=== PATIENT | male | born 1945 | race Caucasian/White ===

== ENCOUNTER → 2019-02-26 08:51 | Outpatient (CLI) | payer MEDICARE, OTHER, SELFPAY ==
[2019-02-26 09:30] LABS: Cholesterol 267 mg/dL (140-199); HDL Cholesterol 54 mg/dL (40-60); LDL Cholesterol Calculated 196 mg/dL (<100); Triglycerides 84 mg/dL (35-150)
== END ==
PROVIDERS: Visit Provider Internal Medicine
DX: E78.00 Pure hypercholesterolemia, unspecified (principal)
CPT/HCPCS: 36415; 80061

== ENCOUNTER → 2019-05-24 08:31 | Outpatient (CLI) | payer MEDICARE, OTHER, SELFPAY ==
[2019-05-24 09:57] LABS: Cholesterol 189 mg/dL (140-199); HDL Cholesterol 58 mg/dL (40-60); LDL Cholesterol Calculated 105 mg/dL (<100); Triglycerides 131 mg/dL (35-150)
== END ==
PROVIDERS: Visit Provider Internal Medicine
DX: E78.00 Pure hypercholesterolemia, unspecified (principal)
CPT/HCPCS: 36415; 80061

== ENCOUNTER → 2020-04-07 09:27 | Outpatient (CLI) | payer MEDICARE, OTHER, SELFPAY ==
[2020-04-07 11:59] LABS: Alanine Aminotransferase 34 IU/L (<50); Albumin 4.3 g/dL (3.5-5.0); Albumin Globulin Ratio 1.6 (1.0-2.8); Alkaline Phosphatase 54 U/L (38-126); Aspartate Aminotransferase 33 IU/L (17-59); BUN Creatinine Ratio 16.8 (6-22); Bilirubin Total 0.8 mg/dL (0.2-1.3); Blood Urea Nitrogen 19 mg/dL (9-20); Calcium 9.6 mg/dL (8.4-10.2); Carbon Dioxide 25 mmol/L (22-32); Chloride 106 mmol/L (98-107); Cholesterol 168 mg/dL (140-199); Estimated Glomerular Filt Rate > 60.0 mL/min (>60); Globulin 2.7 g/dL (1.7-4.1); Glucose 112 mg/dL (80-110); HDL Cholesterol 66 mg/dL (40-60); HEMOLYSIS < 15 (0-50); LDL Cholesterol Calculated 82 mg/dL (<100); Potassium 4.5 mmol/L (3.4-5.1); Sodium 139 mmol/L (137-145); Triglycerides 102 mg/dL (35-150)
== END ==
PROVIDERS: Referring Provider Internal Medicine; Visit Provider Internal Medicine
DX: E78.00 Pure hypercholesterolemia, unspecified (principal); R97.20 Elevated prostate specific antigen [PSA]
CPT/HCPCS: 36415; 80053; 80061

== ENCOUNTER → 2020-09-15 14:45 | Outpatient (CLI) | payer MEDICARE, OTHER, SELFPAY ==
[2020-09-15] MEDS: COVID-19 VACC #1, MRNA(MOD) 100 MCG/0.5 ML VIAL IM (14:47)
== END ==
PROVIDERS: PCP Internal Medicine; Visit Provider Internal Medicine
DX: Z23 Encounter for immunization (principal)
CPT/HCPCS: 0011A; 91301

== ENCOUNTER → 2020-10-13 07:36 | Outpatient (CLI) | payer MEDICARE, OTHER, SELFPAY ==
[2020-10-13] MEDS: COVID-19 VACC #2, MRNA(MOD) 100 MCG/0.5 ML VIAL IM (08:08)
== END ==
PROVIDERS: PCP Internal Medicine; Visit Provider Internal Medicine
DX: Z23 Encounter for immunization (principal)
CPT/HCPCS: 0012A; 91301

== ENCOUNTER → 2024-04-07 09:06 | Outpatient (CLI) | payer MEDICARE, OTHER, SELFPAY ==
[2024-04-07 10:10] LABS: Add Manual Diff / Slide Review NO; Basophils Absolute Auto 0 /uL (0-100); Basophils Percent Auto 0.4 % (0-2); Eosinophils Absolute Auto 400 /uL (0-450); Eosinophils Percent Auto 4.5 % (2-4); Hematocrit 42.2 % (41-53); Hemoglobin 14.4 g/dL (13.5-17.5); Lymphocytes Absolute Auto 1800 /uL (1100-4500); Lymphocytes Percent Auto 20.3 % (25-40); Mean Corpuscular HGB Conc 34.1 % (30-36); Mean Corpuscular Hemoglobin 30.9 PG (26-34); Mean Corpuscular Volume 90.7 fL (80-100); Monocytes Absolute Auto 700 /uL (0-900); Monocytes Percent Auto 8.4 % (3-14); Neutrophils Absolute Auto 5900 /uL (1500-7000); Neutrophils Percent Auto 66.4 % (50-75); Platelet Count 288 X10^3/uL (150-400); Red Blood Cell Count 4.65 X10^6/uL (4.5-5.9); Red Cell Distribution Width 13.9 % (11.6-14.8); White Blood Cell Count 8.9 X10^3/uL (4.5-11.0)
[2024-04-07 10:31] LABS: Alanine Aminotransferase 28 IU/L (<50); Albumin 4.3 g/dL (3.5-5.0); Albumin Globulin Ratio 1.7 (1.0-2.8); Alkaline Phosphatase 58 U/L (38-126); Aspartate Aminotransferase 34 IU/L (17-59); BUN Creatinine Ratio 23.7 (6-22); Bilirubin Total 0.6 mg/dL (0.2-1.3); Blood Urea Nitrogen 28 mg/dL (9-20); Calcium 9.6 mg/dL (8.4-10.2); Carbon Dioxide 25 mmol/L (22-32); Chloride 109 mmol/L (98-107); Cholesterol 192 mg/dL (140-199); Estimated Glomerular Filt Rate > 60 mL/min (>60); Globulin 2.5 g/dL (1.7-4.1); Glucose 114 mg/dL (80-110); HDL Cholesterol 72 mg/dL (40-60); HEMOLYSIS < 15 (0-50); LDL Cholesterol Calculated 107 mg/dL (<100); Potassium 4.7 mmol/L (3.4-5.1); Sodium 141 mmol/L (137-145); Total Protein 6.8 g/dL (6.3-8.2); Triglycerides 65 mg/dL (35-150)
== END ==
PROVIDERS: PCP Family Medicine; Referring Provider Family Medicine; Visit Provider Family Medicine
DX: K57.90 Diverticulosis of intestine, part unspecified, without perforation or abscess without bleeding (principal); E78.5 Hyperlipidemia, unspecified; Z82.5 Family history of asthma and other chronic lower respiratory diseases
CPT/HCPCS: 36415; 80053; 80061; 85025

== ENCOUNTER → 2024-04-09 08:13 | Outpatient (CLI) | payer MEDICARE, OTHER, SELFPAY ==
[2024-04-12 15:09] LABS: Fecal Immunochemical Test Negative (Negative)
== END ==
LOC: LAB 08:14
PROVIDERS: PCP Family Medicine; Referring Provider Family Medicine; Visit Provider Family Medicine
DX: Z12.11 Encounter for screening for malignant neoplasm of colon (principal); K57.90 Diverticulosis of intestine, part unspecified, without perforation or abscess without bleeding
CPT/HCPCS: 82274

== ENCOUNTER → 2025-05-10 09:12 | Outpatient (CLI) | payer MEDICARE, OTHER, SELFPAY ==
--- NOTE | 2025-05-10 09:13 | DI.RAD.S_ITS ---
PROCEDURE: XR CHEST 2V INDICATIONS: screening TECHNIQUE: 2 views of the chest were acquired. COMPARISON: [facility], , XR CHEST 1V, 03/23/2025, 11:24. FINDINGS: Heart, mediastinum and pulmonary vascular: Heart is normal in size and configuration. Mediastinum is unremarkable. Pulmonary vascular is normal. Lungs: Right lower lobe pneumonia has nearly resolved since the comparison x- ray approximately 6 weeks ago. There is only minimal residual airspace disease in this region Pleural spaces: Normal-no effusions or pneumothorax. IMPRESSION: Essentially complete resolution right lower lobe pneumonia Dictated by: Alok Zhu M.D. on 05/11/2025 at 10:03 Approved by: Alok Zhu M.D. on 05/11/2025 at 10:04
== END ==
PROVIDERS: PCP Family Medicine; Referring Provider Family Medicine; Visit Provider Family Medicine
DX: J18.9 Pneumonia, unspecified organism (principal)
CPT/HCPCS: 71046

== ENCOUNTER → 2025-05-18 15:08 | Outpatient (CLI) | payer MEDICARE, OTHER, SELFPAY | PROVIDERS: PCP Family Medicine; Visit Provider Urology | DX: N40.1 Benign prostatic hyperplasia with lower urinary tract symptoms (principal) | CPT/HCPCS: 87077; 87086 ==

== ENCOUNTER 2025-07-01 09:47 | Inpatient (IN) | payer MEDICARE, OTHER, SELFPAY ==
[2025-07-01] VITALS (12 sets, daily range): BP systolic 117–159; BP diastolic 72–94; PULSE 69–121; RESP 11–23; TEMP 36.5–36.6; O2SAT 94–97; BMI 25.2; BMI 24.9
--- NOTE | 2025-07-01 09:57 | DI.CT.S_ITS ---
PROCEDURE: CT ANGIO HEAD AND NECK INDICATIONS: right arm ataxia TECHNIQUE: After the administration of intravenous contrast, 1 mm thick sections acquired from the aortic arch through the [place]. 3-dimensional xjuwonu-yjthfhsxh-jfinaqenzz (MIP) and/or volume rendering reformats were acquired of the central intracranial vasculature and neck separately. For radiation dose reduction, the following was used: automated exposure control, adjustment of mA and/or kV according to patient size. COMPARISON: None. FINDINGS: Image quality: Diagnostic. Cerebral CT Angiogram: Internal carotid arteries: No acute findings. Intracranial ICA are patent with no significant stenosis. No occlusion. 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 Reference coronal image 117 of series 3 and axial image 131 of series 2. Anterior cerebral arteries: Unremarkable. No significant stenosis. No occlusion. No aneurysm. Middle cerebral arteries: Unremarkable. No significant stenosis. No occlusion. No aneurysm. Posterior cerebral arteries: Unremarkable. No significant stenosis. No occlusion. No aneurysm. Basilar artery: Unremarkable. No significant stenosis. No occlusion. No aneurysm. Vertebral arteries: Unremarkable as visualized. Dural venous sinuses: Unremarkable given phase of enhancement. Other: Arterial phase appearance of the brain parenchyma is unremarkable. Neck CT Angiogram: Internal carotid arteries: Unremarkable. No significant stenosis. No dissection or occlusion. Common carotid arteries: Unremarkable. No significant stenosis. No dissection or occlusion. External carotid arteries: Unremarkable. No occlusion. Vertebral arteries: Unremarkable. No significant stenosis. No dissection or occlusion. Aortic Arch and Mediastinum: Partially visualized aortic arch unremarkable without evidence of aneurysm. Origins of the great vessels unremarkable. Other: Arterial phase soft tissues of the neck and chest are unremarkable. Cervical spondylosis with a degree of canal stenosis C3-C4 and C4-C5. Bilateral bony foraminal narrowing at these 2 levels. IMPRESSION: 1. Question incidental tiny 1 mm left cavernous/supraclinoid carotid aneurysm. At this age, this is a incidental finding. 2. Otherwise no significant intracranial arterial abnormality is seen. 3. No significant abnormality is seen within the arteries of the neck. 4. Cervical spondylosis with canal stenosis and multilevel foraminal narrowing. Any quantitative measurements of stenosis were performed using NASCET criteria. Dictated by: Bipin Medina M.D. on 07/01/2025 at 10:17 Approved by: Bipin Medina M.D. on 07/01/2025 at 10:22
--- NOTE | 2025-07-01 09:57 | DI.CT.S_ITS ---
PROCEDURE: CT STROKE INDICATIONS: right arm ataxia TECHNIQUE: Noncontrast 4.5 mm thick angled axial sections acquired from the foramen magnum to the vertex, with coronal reformats. For radiation dose reduction, the following was used: automated exposure control, adjustment of mA and/or kV according to patient size. COMPARISON: None. FINDINGS: Image quality: Diagnostic. CSF spaces: Basal cisterns are patent. No extra-axial fluid collections. The ventricles are symmetric in size and shape. Brain: No intracranial bleeds or mass effect. There is cerebral volume loss, with resultant ventricular and sulcal prominence. There are periventricular and deep white matter chronic small vessel ischemic changes. There is intracranial internal carotid artery atherosclerosis. Skull and face: Calvarium and visualized facial bones appear intact, without suspicious lesions. Sinuses: Visualized sinuses and mastoids are clear. IMPRESSION: No acute intracranial pathology. Comment: Findings were discussed with Dr. Gallardo on 07.01.25 at 10:11 hours This study fulfills neurological imaging criteria for inclusion or exclusion of acute stroke therapies based on available published neurological guidelines. Dictated by: Bipin Medina M.D. on 07/01/2025 at 10:10 Approved by: Bipin Medina M.D. on 07/01/2025 at 10:12
--- NOTE | 2025-07-01 09:57 | EKG_ITS ---
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
--- NOTE | 2025-07-01 09:58 | ED_ITS ---
HPI - Neuro Symptoms/Deficit General Chief Complaint: Neuro Symptoms/Deficit Stated Complaint: Believes he had stroke. Time Seen by Provider: 07/01/25 09:57 History of Present Illness HPI Narrative: 80-year-old male with history of high cholesterol and enlarged prostate here with cc of ?my right arm does not go where I want it to go. ? He woke up with these symptoms around 5 or 6:00 a.m.. Went to bed around 9:00 p.m. last night. Had a normal day yesterday and did not notice this issue. No recent illness. Denies any chest pain, disturbances in speech or vision, facial droop, weakness in the arms or legs that is new. No fevers, urinary issues aside from chronic issues due to his enlarged prostate. No prior history of stroke. He is not anticoagulated. Related Data Home Medications ?Medication ?Instructions ?Recorded ?Confirmed latanoprost 0.005 % eye drops 1 drp EYE-BOTH DAILY 07/01/25 Previous Rx's ?Medication ?Instructions ?Recorded tamsulosin 0.4 mg capsule 0.8 mg (2 x 0.4 mg) PO DAILY #180 04/08/25 caps aspirin 81 mg tablet,delayed 81 mg PO DAILY #100 tabs 07/02/25 release atorvastatin 20 mg tablet 80 mg (4 x 20 mg) PO BEDTIME #90 07/02/25 tabs clopidogrel 75 mg tablet 75 mg PO DAILY #21 tabs 06/05 04/28 Allergies Allergy/AdvReac Type Severity Reaction Status Date / Time grass pollen Allergy Mild ITCHING Verified 07/01/25 10:00 Review of Systems Review of Systems Narrative: Pertinent ROS obtained and negative except as stated in HPI Patient History Medical History Tear of right biceps muscle BPH (benign prostatic hyperplasia) Glaucoma Family history of heart disease Preventative health care History of colon polyps Family history of COPD (chronic obstructive pulmonary disease) 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 Diverticulosis Elevated PSA Hyperlipidemia Allergies (~2004) Mumps (~1950) Measles (~1949) Chicken pox (~1949) Vertigo (~1989) Colon polyps (~1998) Surgical History History of arthroscopy of both knees Anesthesia Diverticula, colon (~2009) History of shoulder surgery (~1974) History of arthroscopic knee surgery History of appendectomy (~1966) Family History Father Respiratory failure Mother Stroke Social History household members: significant other Smoking Status: Never smoker Exam Narrative Exam Narrative: Constitutional: Well appearing, no acute distress Head: NCAT Cardiovascular: RRR, no murmur or rub Pulmonary: CTA bilaterally, no respiratory distress Abdominal: soft, non-tender Extremities: No LE edema Skin: warm and dry, no diaphoresis Neurological: Alert and oriented x3. Normal attention and follows commands. Memory grossly intact. Receptive & Expressive language intact. Visual/Spacial function - no neglect. Cranial nerves: Normal EOM. No visual loss. No facial palsy. Normal speech. No dysarthria. Motor Exam: Equal 5/5 strength UE and LEs. Sensory Exam: Normal sensation. Coordination and Cerebellar Exam: Ataxia of the right upper extremity. No truncal ataxia. No nystagmus noted. Initial Vital Signs Initial Vital Signs: Vital Signs Pulse Rate 104 H 07/01/25 09:52 Blood Pressure 159/94 H 07/01/25 09:52 Pulse Oximetry 97 07/01/25 09:52 Course Orders Ordered: Discontinued Medications Acetaminophen (Acetaminophen 325 Mg Tablet) 650 mg PO Q6H PRN PRN Reason: Fever/Mild Pain (1-3) Aspirin (Aspirin Ec 325 Mg Tablet) 325 mg PO NOW ONE Stop: 07/01/25 13:59 Last Admin: 07/01/25 14:58 Dose: 325 mg Documented By: SATHISH Aspirin (Aspirin Ec 81 Mg Tablet) 81 mg PO DAILY [facility] Last Admin: 07/02/25 08:13 Dose: 81 mg Documented By: MS Atorvastatin Calcium (Atorvastatin 20 Mg Tablet) 80 mg PO BEDTIME [facility] Last Admin: 07/01/25 20:46 Dose: 80 mg Documented By: ZHANE Clopidogrel Bisulfate (Clopidogrel 75 Mg Tablet) 300 mg PO NOW ONE Stop: 07/01/25 14:07 Last Admin: 07/01/25 14:58 Dose: 300 mg Documented By: SATHISH Clopidogrel Bisulfate (Clopidogrel 75 Mg Tablet) 75 mg PO DAILY [facility] Last Admin: 07/02/25 08:13 Dose: 75 mg Documented By: Heparin Sodium (Porcine) (Heparin 5,000 Unit/Ml Vial) 5,000 unit SUBCUT BID [facility] Last Admin: 07/02/25 08:13 Dose: 5,000 unit Documented By: Admin: 07/01/25 20:46 Dose: 5,000 unit Documented By: [place] Latanoprost (Latanoprost 0.005% Ophth 2.5 Ml) 1 drops EYE-BOTH DAILY [facility] Last Admin: 07/02/25 08:12 Dose: 1 drops Documented By: Admin: 07/01/25 14:56 Dose: Not Given Documented By: SATHISH Naloxone HCl (Naloxone 0.4 Mg/Ml Vial) 0.2 mg IV Q2MIN PRN PRN Reason: Opiate Reversal Sodium Chloride (Sodium Chloride 0.9% Flush) 10 ml IV BID [facility] Last Admin: 07/02/25 08:14 Dose: 10 ml Documented By: Admin: 07/01/25 20:47 Dose: 10 ml Documented By: ZHANE Sodium Chloride (Sodium Chloride 0.9% Flush) 10 ml IV BID [facility] Last Admin: 07/01/25 20:50 Dose: Not Given Documented By: NH Tamsulosin HCl (Tamsulosin 0.4 Mg Capsule) 0.8 mg PO DAILY [facility] Last Admin: 07/02/25 08:13 Dose: 0.8 mg Documented By: Admin: 07/01/25 14:57 Dose: Not Given Documented By: SATHISH MDM - Neuro Symptoms/Deficit Lab Data 07/01/25 09:57 07/01/25 09:57 Labs: Lab Results 07/01/25 07/01/25 Range/Units 09:57 11:15 WBC 6.6 (4.5-11.0) X10^3/uL RBC 4.97 (4.5-5.9) X10^6/uL Hgb 15.1 (13.5-17.5) g/dL Hct 44.3 (41-53) % MCV 89.1 (80-100) fL MCH 30.3 (26-34) PG MCHC 34.0 (30-36) % RDW 14.7 (11.6-14.8) % Plt Count 225 (150-400) X10^3/uL Neut % (Auto) 67.5 (50-75) % Lymph % (Auto) 22.7 L (25-40) % [place] % (Auto) 6.3 (3-14) % Eos % (Auto) 2.9 (2-4) % Baso % (Auto) 0.6 (0-2) % Neut # (Auto) 4500 (2321-6742) /uL Lymph # (Auto) 1500 (1214-6006) /uL [place] # (Auto) 400 (0-900) /uL Eos # (Auto) 200 (0-450) /uL Baso # (Auto) 0 (0-100) /uL PT 11.5 (9.4-12.5) SECONDS INR 1.0 (0.9-1.3) APTT 29 (25.1-36.5) SECONDS Sodium 141 (137-145) mmol/L Potassium 4.0 (3.4-5.1) mmol/L Chloride 110 H (98-107) mmol/L Carbon Dioxide 22 (22-32) mmol/L BUN 19 (9-20) mg/dL Creatinine 0.95 (0.66-1.25) mg/dL Estimated GFR > 60 (>60) mL/min BUN/Creatinine Ratio 20.0 (6-22) Glucose 131 H (70-99) mg/dL Hemoglobin A1c 5.9 (4.0-6.0) % Calcium 9.3 (8.4-10.2) mg/dL Total Bilirubin 1.1 (0.2-1.3) mg/dL AST 28 (17-59) IU/L ALT 20 (<50) IU/L Alkaline Phosphatase 74 (38-126) U/L Total Protein 7.5 (6.3-8.2) g/dL Albumin 4.5 (3.5-5.0) g/dL Globulin 3.0 (1.7-4.1) g/dL Albumin/Globulin Ratio 1.5 (1.0-2.8) Triglycerides 106 (35-150) mg/dL Cholesterol 165 (140-199) mg/dL LDL Cholesterol, Calc 81 (<100) mg/dL HDL Cholesterol 63 H (40-60) mg/dL Urine Color Yellow Urine Appearance Clear Urine pH 5.5 (4.5-8.0) Ur Specific [employer] [place] 1.020 (1.000-1.035) Urine Protein Negative (Negative) Urine Glucose (UA) Negative (Negative) g/dL Urine Ketones Negative (NEGATIVE) Urine Occult Blood Trace-intact (Negative) Urine Nitrate Negative (Negative) Urine Bilirubin Negative (NEGATIVE) Urine Urobilinogen 0.2 (0.2) E.U./dL Ur Leukocyte Esterase Negative (NEGATIVE) Urine RBC 0-1/hpf (0-5/HPF) Urine WBC None seen (0-5/HPF) Ur Squamous Epith Cells None seen (0-5/HPF) Urine Bacteria None seen (None) Ur Culture Indicated? Cult not indicated Vol Urine Centrifuged 10ml (spun) Point of Care Testing Glucose POC 125 MDM Narrative Medical decision making narrative: In brief, this is a 80-year-old male with history of high cholesterol here with discoordination of the right arm he noticed at 5:00 a.m. this morning. Last known well was 9:00 p.m. last night In chart review: I see history of urinary retention hydronephrosis BPH, colon polyps, high cholesterol, rotator cuff tear On arrival to the emergency department, the patient is in no acute distress. Normal blood sugar. Exam is pertinent for: Ataxia of the right upper extremity Differential diagnoses considered but not limited to: CVA, complex migraine, vestibular disorder, brain tumors or mass, metabolic derangement Initial treatment plan includes: Code stroke called at 9:50 a.m.. Patient sent urgently for CT CTA. 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 CT head negative Spoke with hospitalist who will admit the patient for stroke workup. On reassessment at 1234, no change in symptoms. Patient remains well. He questioned whether his hx R rotator cuff injury could be causing his symptoms. When I isolate his shoulder and have him repeat coordination testing he continues to have the issue with ataxia Pertinent scoring tools used to guide clinical decision making, if applicable: NIH Stroke Scale/Score (NIHSS) from [email or web address] on 07/01/2025 All calculations should be rechecked by clinician prior to use RESULT SUMMARY: 1 points NIH Stroke Scale INPUTS: 1A: Level of consciousness ?> 0 = Alert; keenly responsive 1B: Ask month and age ?> 0 = Both questions right 1C: 'Blink eyes' & 'squeeze hands' ?> 0 = Performs both tasks 2: Horizontal extraocular movements ?> 0 = Normal 3: Visual blair ?> 0 = No visual loss 4: Facial palsy ?> 0 = Normal symmetry 5A: Left arm motor drift ?> 0 = No drift for 10 seconds 5B: Right arm motor drift ?> 0 = No drift for 10 seconds 6A: Left leg motor drift ?> 0 = No drift for 5 seconds 6B: Right leg motor drift ?> 0 = No drift for 5 seconds 7: Limb Ataxia ?> 1 = Ataxia in 1 Limb 8: Sensation ?> 0 = Normal; no sensory loss 9: Language/aphasia ?> 0 = Normal; no aphasia 10: Dysarthria ?> 0 = Normal 11: Extinction/inattention ?> 0 = No abnormality Discharge Plan Departure Patient Disposition: Admitted As Inpatient Clinical Impression: Stroke Admit Date/Time: 07/01/25 12:37 Admit Provider: Wolf Chinchilla
[2025-07-01 10:06] LABS: Add Manual Diff / Slide Review NO; Hematocrit 44.3 % (41-53); Hemoglobin 15.1 g/dL (13.5-17.5); Lymphocytes Absolute Auto 1500 /uL (1100-4500); Mean Corpuscular HGB Conc 34.0 % (30-36); Mean Corpuscular Hemoglobin 30.3 PG (26-34); Mean Corpuscular Volume 89.1 fL (80-100); Platelet Count 225 X10^3/uL (150-400)
[2025-07-01 10:12] LABS: INR 1.0 (0.9-1.3); Prothrombin Time 11.5 SECONDS (9.4-12.5)
[2025-07-01 10:15] LABS: PTT Partial Thromboplastin Tim 29 SECONDS (25.1-36.5)
[2025-07-01 10:16] LABS: Alanine Aminotransferase 20 IU/L (<50); Albumin 4.5 g/dL (3.5-5.0); Albumin Globulin Ratio 1.5 (1.0-2.8); Alkaline Phosphatase 74 U/L (38-126); Blood Urea Nitrogen 19 mg/dL (9-20); Calcium 9.3 mg/dL (8.4-10.2); Carbon Dioxide 22 mmol/L (22-32); Chloride 110 mmol/L (98-107); Estimated Glomerular Filt Rate > 60 mL/min (>60); Globulin 3.0 g/dL (1.7-4.1); Glucose 131 mg/dL (70-99); HEMOLYSIS < 15 (0-50); Potassium 4.0 mmol/L (3.4-5.1); Sodium 141 mmol/L (137-145); Total Protein 7.5 g/dL (6.3-8.2)
--- NOTE | 2025-07-01 11:06 | RT ---
Code Stroke called in ER, no distress noted, airway patent. Pt on room air 95%
[2025-07-01 11:26] LABS: Appearance Urine UA CLEAR; Bilirubin Urine UA NEGATIVE (NEGATIVE); Color Urine UA YELLOW; Glucose Urine UA NEGATIVE (Negative); Ketones Urine UA NEGATIVE (NEGATIVE); Leukocyte Esterase Urine UA NEGATIVE (NEGATIVE); Nitrite Urine UA NEGATIVE (Negative); Occult Blood Urine UA TRACE-INTACT (Negative); Protein Urine UA NEGATIVE (Negative); Specific Gravity Urine UA 1.020 (1.000-1.035); Urobilinogen Urine UA 0.2 E.U./dL (0.2); pH Urine UA 5.5 (4.5-8.0)
[2025-07-01 11:27] LABS: Culture Indicated Urine Cult Not Indicated
--- NOTE | 2025-07-01 13:58 | DI.MRI.S_ITS ---
PROCEDURE: MR HEAD/BRAIN WO CON INDICATIONS: stroke TECHNIQUE: Non-contrast axial T1 spin echo, axial T2 fast spin echo, sagittal and axial FLAIR, coronal T2 fast spin echo, axial gradient echo, axial diffusion and ADC through the brain. COMPARISON: [facility], CT, CT ANGIO HEAD AND NECK, 07/01/2025, 10:00. [facility], CT, CT STROKE, 07/01/2025, 10:00. FINDINGS: Image quality: Excellent. CSF spaces: Ventricles appear symmetric in size and shape. Basal cisterns are patent. No extra-axial fluid collections. Brain: No intracranial bleeds or mass effects. There is cerebral volume loss for age. There are periventricular and deep white matter chronic small vessel ischemic changes. Brainstem appears normal. Numerous punctate bilateral very small acute infarcts are present. These include multifocal foci of cortical infarct in the left posterior frontal parietal region as well as tiny punctate cortical infarcts in the right posterior frontal region. Also present are small areas of cortical infarct in the posterior left parietal occipital region. Reference images 15 through 23 of the diffusion-weighted sequence. The pattern suggests cardiogenic source of multifocal emboli. There is very subtle associated cytotoxic edema present. No chronic ischemic insults. Normal intravascular flow voids are present. Skull and face: Calvarial bone marrow is normal in signal. Orbits are normal. Sinuses: Sinuses and mastoids are clear. IMPRESSION: Numerous bilateral punctate bilateral infarcts including multifocal cortical infarcts are present bilaterally. Findings are consistent with cardiogenic source of bilateral emboli. Recommend echocardiography. Dictated by: Bipin Medina M.D. on 07/01/2025 at 14:43 Approved by: Bipin Medina M.D. on 07/01/2025 at 14:48
--- NOTE | 2025-07-01 14:10 | P.HP_ITS ---
History of Present Illness History of Present Illness Date Patient Seen: 07/01/25 Time Patient Seen: 14:00 Chief complaint: Believes he had stroke. Narrative: The patient was an 80-year-old male with a history of hyperlipidemia and possible untreated hypertension. He presented with right arm weakness which was present upon awakening. The patient had a normal head CT and a negative CTA. 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 The patient has no history of TIA, stroke. He also denies history of tobacco use. Also has no diabetes and denies a family history of stroke. He lives locally. He does not take aspirin on a chronic basis. He does have chronic right shoulder dysfunction and a biceps tendon rupture with a displaced biceps which is chronic. He notes that his issue really is more with coordination of the arm. He was no facial symptoms, speech symptoms, or drooling. ROS: All else reviewed and otherwise unremarkable except as noted in the history and physical. O: VSS NAD, alert and oriented, fluent speech, calm. Normocephalic skull, EOMI, anicteric sclera, symmetric pupils. Oropharynx unremarkable, no droop. Neck supple, midline trachea, no adenopathy. Lungs clear, normal rate and effort. Heart regular, no murmur gallop or rub. Abdomen is soft, non distended and non tender. Extremities are free of edema. Skin is free of rash or lesions. Joints are not swollen or deformed. Judgment appears to be normal. Neurologic: Normal cranial nerves, no facial droop, normal speech and judgment. Motor strength is 5/5 arms and legs with the exception of the right upper extremity which is weak and somewhat ataxic. He also has abnormal biceps as described in the history and physical. This relates to a previous biceps tendon rupture. IMAGING: CTH: No acute intracranial pathology. CTA head and neck: Cerebral CT Angiogram: Internal carotid arteries: No acute findings. Intracranial ICA are patent with no significant stenosis. No occlusion. 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 Reference coronal image 117 of series 3 and axial image 131 of series 2. Anterior cerebral arteries: Unremarkable. No significant stenosis. No occlusion. No aneurysm. Middle cerebral arteries: Unremarkable. No significant stenosis. No occlusion. No aneurysm. Posterior cerebral arteries: Unremarkable. No significant stenosis. No occlusion. No aneurysm. Basilar artery: Unremarkable. No significant stenosis. No occlusion. No aneurysm. Vertebral arteries: Unremarkable as visualized. Dural venous sinuses: Unremarkable given phase of enhancement. Other: Arterial phase appearance of the brain parenchyma is unremarkable. Neck CT Angiogram: Internal carotid arteries: Unremarkable. No significant stenosis. No dissection or occlusion. Common carotid arteries: Unremarkable. No significant stenosis. No dissection or occlusion. External carotid arteries: Unremarkable. No occlusion. Vertebral arteries: Unremarkable. No significant stenosis. No dissection or occlusion. Aortic Arch and Mediastinum: Partially visualized aortic arch unremarkable without evidence of aneurysm. Origins of the great vessels unremarkable. Other: Arterial phase soft tissues of the neck and chest are unremarkable. Cervical spondylosis with a degree of canal stenosis C3-C4 and C4-C5. Bilateral bony foraminal narrowing at these 2 levels. MR Brain: IMPRESSION: Numerous bilateral punctate bilateral infarcts including multifocal cortical infarcts are present bilaterally. Findings are consistent with cardiogenic source of bilateral emboli. Recommend echocardiography. ECG: NSR A/P: 1. Multiple strokes (bilateral), with concern for cardioembolic source (vs arch embolization), Active. 2. HLD, active. 3. Probable HTN, active. PLAN: -aspirin and Plavix low today, DAPT for 21 days. Increase dose of statin 80 daily. -echo to rule out cardioembolic source versus PFO. -PT, OT -telemetry to rule out PAF. Anticipate 2 midnights in the hospital, supports inpatient status. 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 Diverticulosis Elevated PSA Hyperlipidemia Allergies (~2004) Mumps (~1949) Measles (~1949) Chicken pox (~1949) Vertigo (~1989) Colon polyps (~1998) Surgical History History of arthroscopy of both knees Anesthesia Diverticula, colon (~2009) History of shoulder surgery (~1974) History of arthroscopic knee surgery History of appendectomy (~1966) Family History Father Respiratory failure Mother Stroke Social History household members: significant other Smoking Status: Never smoker Meds Home Medications and Allergies Home Medications ?Medication ?Instructions ?Recorded ?Confirmed ?Type atorvastatin 40 mg tablet 40 mg PO DAILY #90 tabs 12/0 12/2507/01/25 Rx latanoprost 0.005 % eye drops 1 drp EYE-BOTH DAILY 07/01/25 History tamsulosin 0.4 mg capsule 0.8 mg (2 x 0.4 mg) PO DAILY #180 04/08/25 07/01/25 Rx caps Allergies Allergy/AdvReac Type Severity Reaction Status Date / Time grass pollen Allergy Mild ITCHING Verified 07/01/25 10:00 Exam Vital Signs (past 8 hours): - 07/01/25 09:52 07/01/25 09:52 07/01/25 09:55 Temperature 97.8 F Pulse Rate 104 H 121 H Respiratory Rate 16 Blood Pressure 159/94 H 159/94 H Pulse Oximetry 97 95 Oxygen Delivery Method Room Air 07/01/25 10:09 07/01/25 10:16 07/01/25 10:16 Temperature Pulse Rate 95 H 92 H Respiratory Rate 23 Blood Pressure 130/84 Pulse Oximetry 94 94 Oxygen Delivery Method 07/01/25 10:30 07/01/25 10:30 07/01/25 11:00 Temperature Pulse Rate 91 H Respiratory Rate 12 Blood Pressure 117/77 135/83 Pulse Oximetry 94 Oxygen Delivery Method 07/01/25 11:00 07/01/25 11:30 07/01/25 12:00 Temperature Pulse Rate 88 108 H 69 Respiratory Rate 18 12 11 L Blood Pressure Pulse Oximetry 94 94 94 Oxygen Delivery Method 07/01/25 12:12 07/01/25 12:12 07/01/25 12:30 Temperature Pulse Rate 88 107 H Respiratory Rate 22 17 Blood Pressure 125/72 Pulse Oximetry 96 95 Oxygen Delivery Method 07/01/25 12:51 07/01/25 13:00 Temperature Pulse Rate 85 Respiratory Rate 16 Blood Pressure Pulse Oximetry 95 Oxygen Delivery Method Room Air Oxygen Delivery Method Room Air Objective Labs 07/01/25 09:57 07/01/25 09:57 Labs: Laboratory Results - last 24 hr 07/01/25 07/01/25 09:57 11:15 WBC 6.6 RBC 4.97 Hgb 15.1 Hct 44.3 MCV 89.1 MCH 30.3 MCHC 34.0 RDW 14.7 Plt Count 225 Neut % (Auto) 67.5 Lymph % (Auto) 22.7 L [place] % (Auto) 6.3 Eos % (Auto) 2.9 Baso % (Auto) 0.6 Neut # (Auto) 4500 Lymph # (Auto) 1500 [place] # (Auto) 400 Eos # (Auto) 200 Baso # (Auto) 0 PT 11.5 INR 1.0 APTT 29 Sodium 141 Potassium 4.0 Chloride 110 H Carbon Dioxide 22 BUN 19 Creatinine 0.95 Estimated GFR > 60 BUN/Creatinine Ratio 20.0 Glucose 131 H Calcium 9.3 Total Bilirubin 1.1 AST 28 ALT 20 Alkaline Phosphatase 74 Total Protein 7.5 Albumin 4.5 Globulin 3.0 Albumin/Globulin Ratio 1.5 Urine Color Yellow Urine Appearance Clear Urine pH 5.5 Ur Specific [place] 1.020 Urine Protein Negative Urine Glucose (UA) Negative Urine Ketones Negative Urine Occult Blood Trace-intact Urine Nitrate Negative Urine Bilirubin Negative Urine Urobilinogen 0.2 Ur Leukocyte Esterase Negative Urine RBC 0-1/hpf Urine WBC None seen Ur Squamous Epith Cells None seen Urine Bacteria None seen Ur Culture Indicated? Cult not indicated Vol Urine Centrifuged 10ml (spun) Assessment & Plan Time-Based Coding :: 35 min spent with patient and on the chart (including review of chart, obtaining history, exam, reviewing outside data, placing orders, documenting exam and treatment plan, and counseling patient) on 07/01. Quality VTE Deep Vein Thrombosis/Pulmonary Embolism Present on Admission: No MIPS - Admit I confirm the patient?s Advance Care Plan is present, Code status is documented, Surrogate decision maker is in patient?s record [If Yes, STOP here]: Yes MIPS - Meds 'Current medications' to include all prescriptions, [id number] products, herbals, cannabis/cannabidiol products, and vitamin/mineral/dietary (nutritional) supplements. I have utilized all available resources to obtain, update, or review the patient?s current medications. [If Yes, STOP here]: Yes
--- NOTE | 2025-07-01 14:38 | PC.NURSE ---
Day shift: Back from MRI at approx 1440. Has no complaints and tolerated MRI well per facility maintenance technician. Pt in BR and voiding. Will measure output. Pt will be placed back on tele when back in bed.
[2025-07-01 14:47] LABS: MRSA (Nasal) PCR NOT DETECTED (Not Detect)
[2025-07-01] MEDS: ASPIRIN EC 325 MG TABLET PO (14:58)
[2025-07-01] MEDS: CLOPIDOGREL 75 MG TABLET 300 MG PO (14:58)
[2025-07-01] MEDS: INFLUENZA HD VACCINE 0.5 ML SYRINGE IM (14:58)
--- NOTE | 2025-07-01 15:03 | DI.ECHO.S_ITS ---
[place] +---------+ Hospital : : [address] : : [place] : : [id number] : : Phone: [phone] Echocardiogram Report + + :Name: KATHERINE AGEE Study Date: 07/01/2025 Height: 70 in : :[facility] ReadingLocation: Weight: 165 lb : : Gender: Male BSA: 1.9 m2 : :: 1945 Age: 80 yrs BP: 144/87 mmHg: :Reason For Study: CVA : :Ordering Physician: LU, : :BRIELLE Gillespie Performed By: Geovanna Davis : :Referring: BRIELLE LEIGH : + + Interpretation Summary There is mild-moderate concentric left ventricular hypertrophy. The ejection fraction is estimated to be 60-65%. Diastolic function is indeterminate. The left atrium is mildly dilated. The right ventricle is normal in size and function. Pulmonary artery pressures cannot be estimated because of the lack of a measurable TR jet velocity. Doppler interrogation and injection of saline echo contrast shows no evidence for an interatrial shunt. Procedure: A two-dimensional transthoracic echocardiogram with color flow and Doppler was performed. The study quality was technically adequate. There is no prior echocardiogram noted for this patient. The heart rate ranged between 83-89 bpm during the study. Left Ventricle: The left ventricle is normal in size. There is mild-moderate concentric left ventricular hypertrophy. The ejection fraction is estimated to be 60-65%. Diastolic function is indeterminate. Right Ventricle: The right ventricle is normal in size and function. Atria: The left atrium is mildly dilated. Right atrial size is normal. Doppler interrogation and injection of saline echo contrast shows no evidence for an interatrial shunt. Bubble study was captured on image frame(s) # 70,71. Mitral Valve: The mitral valve leaflets appear borderline thickened. There is trace mitral regurgitation. Aortic Valve: The aortic valve opens well. There is no aortic valve stenosis. There is trace aortic regurgitation. Tricuspid Valve: The tricuspid valve leaflets are thin and pliable. There is a trace or physiologic amount of tricuspid regurgitation. Pulmonary artery pressures cannot be estimated because of the lack of a measurable TR jet velocity. Pulmonic Valve: The pulmonic valve is not well visualized. Great Vessels: The aortic root is normal size. The ascending aorta could not be visualized. The aortic arch is normal in size. The inferior vena cava was not visualized. Pericardium/ Pleura There is no pericardial effusion. There is no pleural effusion. MMode/2D Measurements & Calculations LVIDd: 4.8 cm LVOT diam: 1.9 cm LVIDs: 2.6 cm Ao root diam: 3.8 cm FS: 46.4 % Ao Arch Diam (Prox Trans): 2.9 cm IVSd: 1.2 cm LVPWd: 1.1 cm LV govea. diameter/BSA (cm/m^2): 2.5 LV sys. diameter/BSA (cm/m^2): 1.3 LA A2 area: 23.0 cm2 RA long axis: 5.0 cm LA A4 area: 19.5 cm2 RA area: 16.1 cm2 LA length (vol): 5.5 cm RA vol: 44.3 ml LA vol: 68.7 ml RA : 23.0 ml/m2 LA vol index: 35.7 ml/m2 RVD1 (basal): 2.5 cm TAPSE: 1.8 cm Doppler Measurements & Calculations Ao V2 max: 126.4 cm/sec LVOT Max Baldev: 90.2 cm/sec Ao V2 mean: 84.8 cm/sec LV V1 max P.3 mmHg Ao max P.4 mmHg LV V1 VTI: 16.0 cm Ao mean P.3 mmHg JOSE ALBERTO(I,D): 1.8 cm2 Ao V2 VTI: 24.9 cm JOSE ALBERTO(V,D): 1.9 cm2 sev ratio: 0.64 JOSE ALBERTO indexed to BSA (cm^2/m^2): 0.91 MV E max baldev: 70.4 cm/sec TR max baldev: 248.4 cm/sec MV A max baldev: 47.1 cm/sec TR max P.7 mmHg MV E/A: 1.5 Med Peak E' Baldev: 5.5 cm/sec E/E' med: 12.9 Lat Peak E' Baldev: 6.0 cm/sec E/E' lat: 11.7 E/e' average: 12.3 MV dec time: 0.22 sec MR VTI: 157.1 cm SV(LVOT): 43.8 ml Reading Physician:05:12 PM
[2025-07-01 15:15] LABS: Cholesterol 165 mg/dL (140-199); HDL Cholesterol 63 mg/dL (40-60); Triglycerides 106 mg/dL (35-150)
[2025-07-01 15:17] LABS: Hemoglobin A1C% w Est Avg Glu 5.9 % (4.0-6.0)
--- NOTE | 2025-07-01 15:21 | PT.IPTN ---
Physical Therapy Treatment Note M2 PT-IP Current Condition Start: 07/01/25 15:12 Freq: NEEDED Status: Active Protocol: Document 07/01/25 15:12 KJ (Rec: 07/01/25 15:20 KJ [id number]) Physical Therapy Current Condition Current Condition Evaluation Date 07/01/25 Treatment Diagnosis RUE ataxia Onset Date 07/01/25 M3 PT-IP Subjective Start: 07/01/25 15:12 Freq: NEEDED Status: Active Protocol: Document 07/01/25 15:12 KJ (Rec: 07/01/25 15:20 KJ [id number]) Subjective Physical Therapy Visit Type Type Initial Evaluation Visit Start Time 14:52 Visit Stop Time 15:09 Physical Therapy Visit Comments Patient Comments Recently had spontaneous rupture of the R biceps tendon . Has been waiting to get diagnostic imaging. This am awoke w/ataxia in the RUE. Was able to take a shower and get dressed before presenting to the hospital. RUE feels abnormal w/out pain M4 PT-IP Mobility and Gait Start: 07/01/25 15:12 Freq: NEEDED Status: Active Protocol: Document 07/01/25 15:12 KJ (Rec: 07/01/25 15:20 KJ [id number]) PT-Bed Mobility Assessment Rolling Type of Rolling Roll to Left Level of Assist Independent Supine to Sit Supine to Sit Independent Sit to Supine Sit to Supine Independent Scooting Scooting to Edge of Independent Bed Scooting Up and Down Independent in Bed PT-Transfer Assessment Sit to and From Stand Sit to and from Independent Stand Equipment Transfer Assistive None Device Transfers Transfer Destination Chair Transfer Ability Level of Assist Independent Gait Assessment Gait Gait Assistance Standby Assistance Required: Distance (Feet) 10 Gait Deviations General Gait Pattern Within Normal Limits PT-Balance Assessment Sitting Balance and Reactions Static Sitting Normal Balance Ability Dynamic Sitting Normal Balance Ability Standing Balance and Reactions Static Standing Normal Balance Ability Dynamic Standing Normal Balance Ability M5 PT-IP Objective Assessments Start: 07/01/25 15:12 Freq: NEEDED Status: Active Protocol: Document 07/01/25 15:12 KJ (Rec: 07/01/25 15:20 KJ [id number]) Orientation Orientation/Cognition Level of Alertness Alert Orientation Name,Age,Birthday,Month,Date,Year,Day of Week,Place, Situation Language Function No Deficits Noted Ability Safety Awareness Understands Safety Issues Memory Description No Deficits Noted Gross Range of Motion Upper Extremity ROM Assessment Within Functional Limits Lower Extremity ROM Assessment Within Functional Limits Strength Upper Extremity Strength Assessment Right Impaired Shoulder decreased in shoulder flex, WFL shoulder abd/int rot/ ext rot Hand decreased 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 Performed Had pt swallow water from straw without difficulty, no garbled speech after. M7 PT-IP Assessment and Plan Start: 07/01/25 15:12 Freq: NEEDED Status: Active Protocol: Document 07/01/25 15:12 KJ (Rec: 07/01/25 15:20 KJ [id number]) PT Summary Assessment and Plan Potential Rehabilitation Excellent Potential Status of Condition Evolving at Evaluation Summary Impairments Strength,Coordination Treatment Plan Other Plan to follow patient while hospitalized and intervene Recommendations and if necessary. Next Treatment Focus If symptoms persist after discharge, Outpatient therapy is recommended. Recommendations To Nursing Amount of Assist Standby Assistance Needed Discharge Recommendations PT Discharge Home with Assistance Recommendations Transportation Needs Private Vehicle at Discharge
--- NOTE | 2025-07-01 16:04 | OT.IPNOTE ---
Pt getting ECHO and not able to see pt for OT eval.
--- NOTE | 2025-07-01 17:18 | PC.ADMIT ---
[email or web address] Myles AVFlory Admission Note: Pt arrived to room at approximately 1310, A&Ox4, accompanied by significant other, Eleni Huber. Pt oriented to room and call light. Pt down to MRI at approximately 1420. Pt back 1440. Echo at bedside. Pt declining skin check at this time due to dinner tray being present. Care ongoing. The patient,Armen Guerrero,80 y/o, was given written information regarding hospital policies, unit procedures and contact persons. Patient's smoking status: Never smoker. Vital Signs - 8 hr 07/01/25 09:52 07/01/25 09:52 07/01/25 09:55 Temperature 97.8 F Pulse Rate 104 H 121 H Respiratory Rate 16 Blood Pressure 159/94 H 159/94 H Pulse Oximetry 97 95 Oxygen Delivery Method Room Air 07/01/25 10:09 07/01/25 10:16 07/01/25 10:16 Temperature Pulse Rate 95 H 92 H Respiratory Rate 23 Blood Pressure 130/84 Pulse Oximetry 94 94 Oxygen Delivery Method 07/01/25 10:30 07/01/25 10:30 07/01/25 11:00 Temperature Pulse Rate 91 H Respiratory Rate 12 Blood Pressure 117/77 135/83 Pulse Oximetry 94 Oxygen Delivery Method 07/01/25 11:00 07/01/25 11:30 07/01/25 12:00 Temperature Pulse Rate 88 108 H 69 Respiratory Rate 18 12 11 L Blood Pressure Pulse Oximetry 94 94 94 Oxygen Delivery Method 07/01/25 12:12 07/01/25 12:12 07/01/25 12:30 Temperature Pulse Rate 88 107 H Respiratory Rate 22 17 Blood Pressure 125/72 Pulse Oximetry 96 95 Oxygen Delivery Method 07/01/25 12:51 07/01/25 13:00 Temperature Pulse Rate 85 Respiratory Rate 16 Blood Pressure Pulse Oximetry 95 Oxygen Delivery Method Room Air
[2025-07-01] MEDS: ATORVASTATIN 20 MG TABLET 80 MG PO (20:46)
[2025-07-01] MEDS: HEPARIN 5,000 UNIT/ML VIAL 5000 UNIT SUBCUT (20:46)
[2025-07-01] MEDS: SODIUM CHLORIDE 0.9% FLUSH 10 ML IV (20:47)
[2025-07-02] VITALS: BP 117/73; PULSE 80; RESP 14; TEMP 36.6; O2SAT 97
[2025-07-02 04:00] VITALS: BP 128/78; PULSE 82; RESP 17; TEMP 36.6; O2SAT 93
[2025-07-02] MEDS: LATANOPROST 0.005% OPHTH 2.5 ML 1 DROPS EYE-BOTH (08:12)
[2025-07-02] MEDS: HEPARIN 5,000 UNIT/ML VIAL 5000 UNIT SUBCUT (08:13)
[2025-07-02] MEDS: ASPIRIN EC 81 MG TABLET PO (08:13)
[2025-07-02] MEDS: TAMSULOSIN 0.4 MG CAPSULE 0.8 MG PO (08:13)
[2025-07-02] MEDS: CLOPIDOGREL 75 MG TABLET PO (08:13)
[2025-07-02] MEDS: SODIUM CHLORIDE 0.9% FLUSH 10 ML IV (08:14)
[2025-07-02 08:50] VITALS: BP 134/82; PULSE 75; RESP 14; TEMP 36.9; O2SAT 95
--- NOTE | 2025-07-02 09:09 | P.DS_ITS ---
History of Present Illness History of Present Illness Date Patient Seen: 07/02/25 Chief complaint: Believes he had stroke. Narrative: The patient was an 80-year-old male with a history of hyperlipidemia and possible untreated hypertension. He presented with right arm weakness which was present upon awakening. The patient had a normal head CT and a negative CTA. 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 The patient has no history of TIA, stroke. He also denies history of tobacco use. Also has no diabetes and denies a family history of stroke. He lives locally. He does not take aspirin on a chronic basis. He does have chronic right shoulder dysfunction and a biceps tendon rupture with a displaced biceps which is chronic. He notes that his issue really is more with coordination of the arm. He was no facial symptoms, speech symptoms, or drooling. Hospital course: 07/02: Patient recovered most of the function of his left arm and no other noticeable neurologic signs at this time to him MRI of the brain shows Numerous bilateral punctate bilateral infarcts including multifocal cortical infarcts are present bilaterally. Findings are consistent with cardiogenic source of bilateral emboli. Echocardiogram does not demonstrate findings or evidence of cardioembolic source of stroke. Shows normal ejection fraction. Doppler interrogation and injection of saline echo contrast shows no evidence for an interatrial shunt. Patient discharged on high-intensity statin and dual antiplatelet aspirin and Plavix Review of systems: No fevers chills rigors No loss of conscious No chest pain palpitations shortness for breath No abdominal pain nausea vomiting diarrhea No urinary symptoms Physical examination: Alert and oriented Heart rate and rhythm regular Lungs clear Abdomen nondistended Neurologic: Normal cranial nerves, no facial droop, normal speech and judgment. Motor strength is 5/5 arms and legs with the exception of the right upper extremity which is weak and somewhat ataxic. He also has abnormal biceps as described in the history and physical. This relates to a previous biceps tendon rupture. IMAGING: CTH: No acute intracranial pathology. CTA head and neck: Cerebral CT Angiogram: Internal carotid arteries: No acute findings. Intracranial ICA are patent with no significant stenosis. No occlusion. 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 Reference coronal image 117 of series 3 and axial image 131 of series 2. Anterior cerebral arteries: Unremarkable. No significant stenosis. No occlusion. No aneurysm. Middle cerebral arteries: Unremarkable. No significant stenosis. No occlusion. No aneurysm. Posterior cerebral arteries: Unremarkable. No significant stenosis. No occlusion. No aneurysm. Basilar artery: Unremarkable. No significant stenosis. No occlusion. No aneurysm. Vertebral arteries: Unremarkable as visualized. Dural venous sinuses: Unremarkable given phase of enhancement. Other: Arterial phase appearance of the brain parenchyma is unremarkable. Neck CT Angiogram: Internal carotid arteries: Unremarkable. No significant stenosis. No dissection or occlusion. Common carotid arteries: Unremarkable. No significant stenosis. No dissection or occlusion. External carotid arteries: Unremarkable. No occlusion. Vertebral arteries: Unremarkable. No significant stenosis. No dissection or occlusion. Aortic Arch and Mediastinum: Partially visualized aortic arch unremarkable without evidence of aneurysm. Origins of the great vessels unremarkable. Other: Arterial phase soft tissues of the neck and chest are unremarkable. Cervical spondylosis with a degree of canal stenosis C3-C4 and C4-C5. Bilateral bony foraminal narrowing at these 2 levels. MR Brain: IMPRESSION: Numerous bilateral punctate bilateral infarcts including multifocal cortical infarcts are present bilaterally. Findings are consistent with cardiogenic source of bilateral emboli. Recommend echocardiography. Echocardiogram: There is mild-moderate concentric left ventricular hypertrophy. The ejection fraction is estimated to be 60-65%. Diastolic function is indeterminate. The left atrium is mildly dilated. The right ventricle is normal in size and function. Pulmonary artery pressures cannot be estimated because of the lack of a measurable TR jet velocity. Doppler interrogation and injection of saline echo contrast shows no evidence for an interatrial shunt. Assessment and plan: CVA with numerous bilateral punctate infarcts including milk of focal cortical infarcts bilaterally * No findings on echocardiogram to demonstrate cardiogenic source * High-intensity statin and dual antiplatelet aspirin and Plavix * Follow up with PCP Disposition: * Discharge to home * Follow up with outpatient physical therapy Time based billing: * 35 minutes were involved in the evaluation of this patient including [id number] evaluation physical examination discussion with care team arrangements for PT OT outpatient review of records and objective findings Discharge Providers Provider Date of admission: 07/01/25 12:37 Discharge Date: 07/02/25 Primary care physician: Rubio Haney DO Consults: 07/01/25 14:06 Consult to Discharge Planning Routine Comment: Consult to Occupational Therapy Evaluate & Treat Comment: Physician Instructions: Evaluate and treat Consult to Physical Therapy Evaluate & Treat Comment: Physician Instructions: Evaluate and Treat Consult to Speech Therapy Evaluate & Treat Comment: Physician Instructions: Evaluate and treat 07/01/25 14:09 Consult to Occupational Therapy Evaluate & Treat Comment: Physician Instructions: Evaluate and treat Consult to Physical Therapy Evaluate & Treat Comment: Physician Instructions: Evaluate and Treat Discharge provider: Nestor Martino MD Exam Vital Signs (past 8 hours): - 07/02/25 04:00 07/02/25 07:00 07/02/25 08:50 Temperature 97.9 F 98.4 F Pulse Rate 82 75 Respiratory Rate 17 14 Blood Pressure 128/78 134/82 Pulse Oximetry 93 95 Oxygen Delivery Method Room Air Oxygen Flow Rate 0 0 Oxygen Delivery Method Room Air Oxygen Flow Rate 0 Objective Labs 07/01/25 09:57 07/01/25 09:57 Labs: Laboratory Results - last 24 hr 07/01/25 07/01/25 07/01/25 09:57 11:15 13:00 WBC 6.6 RBC 4.97 Hgb 15.1 Hct 44.3 MCV 89.1 MCH 30.3 MCHC 34.0 RDW 14.7 Plt Count 225 Neut % (Auto) 67.5 Lymph % (Auto) 22.7 L Dawes % (Auto) 6.3 Eos % (Auto) 2.9 Baso % (Auto) 0.6 Neut # (Auto) 4500 Lymph # (Auto) 1500 Dawes # (Auto) 400 Eos # (Auto) 200 Baso # (Auto) 0 PT 11.5 INR 1.0 APTT 29 Sodium 141 Potassium 4.0 Chloride 110 H Carbon Dioxide 22 BUN 19 Creatinine 0.95 Estimated GFR > 60 BUN/Creatinine Ratio 20.0 Glucose 131 H Hemoglobin A1c 5.9 Calcium 9.3 Total Bilirubin 1.1 AST 28 ALT 20 Alkaline Phosphatase 74 Total Protein 7.5 Albumin 4.5 Globulin 3.0 Albumin/Globulin Ratio 1.5 Triglycerides 106 Cholesterol 165 LDL Cholesterol, Calc 81 HDL Cholesterol 63 H Urine Color Yellow Urine Appearance Clear Urine pH 5.5 Ur Specific [place] 1.020 Urine Protein Negative Urine Glucose (UA) Negative Urine Ketones Negative Urine Occult Blood Trace-intact Urine Nitrate Negative Urine Bilirubin Negative Urine Urobilinogen 0.2 Ur Leukocyte Esterase Negative Urine RBC 0-1/hpf Urine WBC None seen Ur Squamous Epith Cells None seen Urine Bacteria None seen Ur Culture Indicated? 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 Diverticulosis Elevated PSA Hyperlipidemia Allergies (~2004) Mumps (~1949) Measles (~1949) Chicken pox (~1949) Vertigo (~1989) Colon polyps (~1998) Surgical History History of arthroscopy of both knees Anesthesia Diverticula, colon (~2009) History of shoulder surgery (~1974) History of arthroscopic knee surgery History of appendectomy (~1966) Family History Father Respiratory failure Mother Stroke Social History household members: significant other Smoking Status: Never smoker Discharge Plan Discharge Plan Patient Disposition: Home Discharge orders & Medications Prescriptions: New atorvastatin 20 mg Tablet 80 mg PO BEDTIME Qty: 90 0RF clopidogrel 75 mg Tablet 75 mg PO DAILY Qty: 21 0RF aspirin 81 mg Tablet,Delayed Release (Dr/Ec) 81 mg PO DAILY Qty: 100 0RF Continued latanoprost 0.005 % drops 1 drp EYE-BOTH DAILY tamsulosin 0.4 mg capsule 0.8 mg PO DAILY Qty: 180 3RF Discontinued atorvastatin 40 mg tablet 40 mg PO DAILY Qty: 90 3RF Follow up/Referrals: Rubio Haney, DO [Primary Care Provider, [facility]] Diet/Activity/Treatments Diet: Diet as Tolerated Visit Report/Discharge Packet Stand Alone Forms: Patient Portal/API, Stroke Signs & Symptoms Discharge Data Primary Care Provider: Rubio Haney Quality VTE Deep Vein Thrombosis/Pulmonary Embolism Present on Admission: No
--- NOTE | 2025-07-02 10:20 | PT.IIE ---
Current Diagnoses Cerebral infarction, unspecified (07/01/25) Surgical History (Last Reviewed 07/01/25 @ 14:29 by Wolf Chinchilla MD) Anesthesia Diverticula, colon (~2009) History of appendectomy (~1966) History of arthroscopic knee surgery History of arthroscopy of both knees History of shoulder surgery (~1974) Medical History (Last Reviewed 07/01/25 @ 14:29 by Wolf Chinchilla MD) Allergies (~2004) BPH (benign prostatic hyperplasia) Chicken pox (~1949) Colon polyps (~1998) Diverticulosis Elevated PSA Family history of COPD (chronic obstructive pulmonary disease) Family history of heart disease Glaucoma History of colon polyps Hyperlipidemia Measles (~1949) Mumps (~1949) Preventative health care 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 Tear of right biceps muscle Vertigo (~1989) Physical Therapy Inpatient Evaluation/Re-Eval M1 PT IP Prior Functional Status Start: 07/01/25 15:12 Freq: NEEDED Status: Discharge Protocol: Document 07/01/25 15:12 KJ (Rec: 07/01/25 15:20 KJ [id number]) Medical Review Prior Functional Status Medical History Yes Reviewed Mobility and Gait Indep w/out AD Activities of Daily Indep Living and IADL's Social History Household Members significant other Living Arrangements House Number of Floors ( One Floor Floors) M2 PT-IP Current Condition Start: 07/01/25 15:12 Freq: NEEDED Status: Discharge Protocol: Document 07/01/25 15:12 KJ (Rec: 07/01/25 15:20 KJ [id number]) Physical Therapy Current Condition Current Condition Evaluation Date 07/01/25 Treatment Diagnosis RUE ataxia Onset Date 07/01/25 M3 PT-IP Subjective Start: 07/01/25 15:12 Freq: NEEDED Status: Discharge Protocol: Document 07/01/25 15:12 KJ (Rec: 07/01/25 15:20 KJ [id number]) Subjective Physical Therapy Visit Type Type Initial Evaluation Visit Start Time 14:52 Visit Stop Time 15:09 Physical Therapy Visit Comments Patient Comments Recently had spontaneous rupture of the R biceps tendon . Has been waiting to get diagnostic imaging. This am awoke w/ataxia in the RUE. Was able to take a shower and get dressed before presenting to the hospital. RUE feels abnormal w/out pain M4 PT-IP Mobility and Gait Start: 07/01/25 15:12 Freq: NEEDED Status: Discharge Protocol: Document 07/01/25 15:12 KJ (Rec: 07/01/25 15:20 KJ [id number]) PT-Bed Mobility Assessment Rolling Type of Rolling Roll to Left Level of Assist Independent Supine to Sit Supine to Sit Independent Sit to Supine Sit to Supine Independent Scooting Scooting to Edge of Independent Bed Scooting Up and Down Independent in Bed PT-Transfer Assessment Sit to and From Stand Sit to and from Independent Stand Equipment Transfer Assistive None Device Transfers Transfer Destination Chair Transfer Ability Level of Assist Independent Gait Assessment Gait Gait Assistance Standby Assistance Required: Distance (Feet) 10 Gait Deviations General Gait Pattern Within Normal Limits PT-Balance Assessment Sitting Balance and Reactions Static Sitting Normal Balance Ability Dynamic Sitting Normal Balance Ability Standing Balance and Reactions Static Standing Normal Balance Ability Dynamic Standing Normal Balance Ability M5 PT-IP Objective Assessments Start: 07/01/25 15:12 Freq: NEEDED Status: Discharge Protocol: Document 07/01/25 15:12 KJ (Rec: 07/01/25 15:20 KJ [id number]) Orientation Orientation/Cognition Level of Alertness Alert Orientation Name,Age,Birthday,Month,Date,Year,Day of Week,Place, Situation Language Function No Deficits Noted Ability Safety Awareness Understands Safety Issues Memory Description No Deficits Noted Gross Range of Motion Upper Extremity ROM Assessment Within Functional Limits Lower Extremity ROM Assessment Within Functional Limits Strength Upper Extremity Strength Assessment Right Impaired Shoulder decreased in shoulder flex, WFL shoulder abd/int rot/ ext rot Hand decreased appeals nurse strength in R hand Lower Extremity Strength Assessment Within Functional Limits Coordination Assessment Gross Coordination Gross Coordination Impaired Assessment Finger to Nose Test Minimal Impairment Coordination RUE Comments M6 PT-IP Treatment Start: 07/01/25 15:12 Freq: NEEDED Status: Discharge Protocol: Document 07/01/25 15:12 KJ (Rec: 07/01/25 15:20 KJ [id number]) Physical Therapy Treatment Education Education Provided Safety Other Treatments Other Treatment Encouraged pt to be up oob for meals. Performed Had pt swallow water from straw without difficulty, no garbled speech after. M7 PT-IP Assessment and Plan Start: 07/01/25 15:12 Freq: NEEDED Status: Discharge Protocol: Document 07/01/25 15:12 KJ (Rec: 07/01/25 15:20 KJ [id number]) PT Summary Assessment and Plan Potential Rehabilitation Excellent Potential Status of Condition Evolving at Evaluation Summary Impairments Strength,Coordination Treatment Plan Other Plan to follow patient while hospitalized and intervene Recommendations and if necessary. Next Treatment Focus If symptoms persist after discharge, Outpatient therapy is recommended. Recommendations To Nursing Amount of Assist Standby Assistance Needed Discharge Recommendations PT Discharge Home with Assistance Recommendations Transportation Needs Private Vehicle at Discharge
--- NOTE | 2025-07-02 10:20 | PT.IIE ---
Current Diagnoses Cerebral infarction, unspecified (07/01/25) Surgical History (Last Reviewed 07/01/25 @ 14:29 by Wolf Chinchilla MD) Anesthesia Diverticula, colon (~2009) History of appendectomy (~1966) History of arthroscopic knee surgery History of arthroscopy of both knees History of shoulder surgery (~1974) Medical History (Last Reviewed 07/01/25 @ 14:29 by Wolf Chinchilla MD) Allergies (~2004) BPH (benign prostatic hyperplasia) Chicken pox (~1949) Colon polyps (~1998) Diverticulosis Elevated PSA Family history of COPD (chronic obstructive pulmonary disease) Family history of heart disease Glaucoma History of colon polyps Hyperlipidemia Measles (~1949) Mumps (~1949) Preventative health care 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 Tear of right biceps muscle Vertigo (~1989) Physical Therapy Inpatient Evaluation/Re-Eval M1 PT IP Prior Functional Status Start: 07/01/25 15:12 Freq: NEEDED Status: Discharge Protocol: Document 07/01/25 15:12 KJ (Rec: 07/01/25 15:20 KJ [id number]) Medical Review Prior Functional Status Medical History Yes Reviewed Mobility and Gait Indep w/out AD Activities of Daily Indep Living and IADL's Social History Household Members significant other Living Arrangements House Number of Floors ( One Floor Floors) M2 PT-IP Current Condition Start: 07/01/25 15:12 Freq: NEEDED Status: Discharge Protocol: Document 07/01/25 15:12 KJ (Rec: 07/01/25 15:20 KJ [id number]) Physical Therapy Current Condition Current Condition Evaluation Date 07/01/25 Treatment Diagnosis RUE ataxia Onset Date 07/01/25 M3 PT-IP Subjective Start: 07/01/25 15:12 Freq: NEEDED Status: Discharge Protocol: Document 07/01/25 15:12 KJ (Rec: 07/01/25 15:20 KJ [id number]) Subjective Physical Therapy Visit Type Type Initial Evaluation Visit Start Time 14:52 Visit Stop Time 15:09 Physical Therapy Visit Comments Patient Comments Recently had spontaneous rupture of the R biceps tendon . Has been waiting to get diagnostic imaging. This am awoke w/ataxia in the RUE. Was able to take a shower and get dressed before presenting to the hospital. RUE feels abnormal w/out pain M4 PT-IP Mobility and Gait Start: 07/01/25 15:12 Freq: NEEDED Status: Discharge Protocol: Document 07/01/25 15:12 KJ (Rec: 07/01/25 15:20 KJ [id number]) PT-Bed Mobility Assessment Rolling Type of Rolling Roll to Left Level of Assist Independent Supine to Sit Supine to Sit Independent Sit to Supine Sit to Supine Independent Scooting Scooting to Edge of Independent Bed Scooting Up and Down Independent in Bed PT-Transfer Assessment Sit to and From Stand Sit to and from Independent Stand Equipment Transfer Assistive None Device Transfers Transfer Destination Chair Transfer Ability Level of Assist Independent Gait Assessment Gait Gait Assistance Standby Assistance Required: Distance (Feet) 10 Gait Deviations General Gait Pattern Within Normal Limits PT-Balance Assessment Sitting Balance and Reactions Static Sitting Normal Balance Ability Dynamic Sitting Normal Balance Ability Standing Balance and Reactions Static Standing Normal Balance Ability Dynamic Standing Normal Balance Ability M5 PT-IP Objective Assessments Start: 07/01/25 15:12 Freq: NEEDED Status: Discharge Protocol: Document 07/01/25 15:12 KJ (Rec: 07/01/25 15:20 KJ [id number]) Orientation Orientation/Cognition Level of Alertness Alert Orientation Name,Age,Birthday,Month,Date,Year,Day of Week,Place, Situation Language Function No Deficits Noted Ability Safety Awareness Understands Safety Issues Memory Description No Deficits Noted Gross Range of Motion Upper Extremity ROM Assessment Within Functional Limits Lower Extremity ROM Assessment Within Functional Limits Strength Upper Extremity Strength Assessment Right Impaired Shoulder decreased in shoulder flex, WFL shoulder abd/int rot/ ext rot 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 Performed Had pt swallow water from straw without difficulty, no garbled speech after. M7 PT-IP Assessment and Plan Start: 07/01/25 15:12 Freq: NEEDED Status: Discharge Protocol: Document 07/01/25 15:12 KJ (Rec: 07/01/25 15:20 KJ [id number]) PT Summary Assessment and Plan Potential Rehabilitation Excellent Potential Status of Condition Evolving at Evaluation Summary Impairments Strength,Coordination Treatment Plan Other Plan to follow patient while hospitalized and intervene Recommendations and if necessary. Next Treatment Focus If symptoms persist after discharge, Outpatient therapy is recommended. Recommendations To Nursing Amount of Assist Standby Assistance Needed Discharge Recommendations PT Discharge Home with Assistance Recommendations Transportation Needs Private Vehicle at Discharge
== END 2025-07-02 10:15 | disposition home or self-care (01) | DRG 66 ==
LOC: ED 12:37 → AC 12:37 → ICU 12:44
PROVIDERS: Admitting Provider Hospitalist; Emergency Provider Student in an Organized Health Care Education/Training Program; PCP Family Medicine; Referring Provider Student in an Organized Health Care Education/Training Program; Visit Provider Hospitalist
DX: I63.9 Cerebral infarction, unspecified (principal); G83.21 Monoplegia of upper limb affecting right dominant side; N40.0 Benign prostatic hyperplasia without lower urinary tract symptoms; H40.9 Unspecified glaucoma; E78.5 Hyperlipidemia, unspecified; R29.701 NIHSS score 1; R29.700 NIHSS score 0
CPT/HCPCS: 36415; 70450; 70496; 70498; 70551; 80053; 80061; 81001; 82962; 83036; 85025; 85610; 85730; 87797; 90471; 90662; 93005; 93306; 97161; 99284; J1644; Q9967

== ENCOUNTER → 2025-07-14 08:17 | Outpatient (CLI) | payer MEDICARE, OTHER, SELFPAY ==
[2025-07-01 13:15] VITALS: BMI 24.9
--- NOTE | 2025-07-14 08:20 | DI.US.S_ITS ---
PROCEDURE: US RENAL COMPLETE INDICATIONS: BIALTERAL HYDRONEPHROSIS AND URINARY RETENTION TECHNIQUE: Real-time scanning was performed of the kidneys and bladder, with image documentation. COMPARISON: [facility], CT, CT ABDOMEN PELVIS WO [facility], 03/24/2025, 4:16. FINDINGS: Kidneys: Right kidney measures 10.1 cm long; left kidney measures 10.7 cm long. Right renal cortical thickness is 1.5 cm; left renal cortical thickness is 1.9 cm. Renal cortical echotexture is normal. Nonobstructing punctate hyper echo ex foci in the left kidney.. No suspicious solid mass lesions. Bladder: Pre-void bladder volume is 241 mL. Post-void residual is 97 mL. Pre- void images demonstrate trabeculated wall as well as a potential bladder diverticulum. On pre-void images, bilateral ureteral jets are noted with color Doppler interrogation. (Of note, ureteral jets may not be detectable in up to 25% of cases due to insufficient differences in specific gravity between ureteral and bladder urine). Miscellaneous: No free pelvic fluid. Prostate gland is enlarged measuring 6.8 cm. Focus of shadowing is present on the prostate poorly visualized. IMPRESSION: Punctate nonobstructing left renal calculi. Large postvoid residual with trabeculated appearance of the bladder suggestive chronic outlet obstruction. Possible bladder diverticulum. Enlarged prostate with area of ill-defined shadowing. Mass cannot be excluded. Recommend correlation to PSA levels and MRI for further evaluation. Dictated by: Shadia Red M.D. on 07/14/2025 at 16:50 Approved by: Shadia Red M.D. on 07/14/2025 at 16:52
== END ==
LOC: US 08:19
PROVIDERS: PCP Family Medicine; Referring Provider Urology; Visit Provider Urology
DX: N40.1 Benign prostatic hyperplasia with lower urinary tract symptoms (principal); R33.8 Other retention of urine; N13.30 Unspecified hydronephrosis; N20.0 Calculus of kidney
CPT/HCPCS: 76770